=== PATIENT | female | born 1940 | race Caucasian/White ===

== ENCOUNTER 2021-06-21 19:45 | Emergency (ER) | payer MEDICARE, OTHER ==
[~2021-06-21 19:45] MED LIST: ARICEPT10 MG PO; ASPIRIN CHEWABL81 MG PO; BENTYL 10MG CAP10 MG PO; BUPROPION HCL100 M1 PO; COLACE 100MG C100 MG PO; ELAVIL 25 MG TA25 MG PO; GLUCOPHAGE500 MG PO; KLONOPIN TAB 00.5 MG PO; LEXAPRO TAB 1010 MG PO; LINZESS145 MCG PO; LUNESTA3 MG PO; LYRICA75 MG PO; MEMANTINE HCL E28 MG PO; NORCO 7.5-3251 EACH PO; TRICOR 145 MG145 MG PO; VITAMIN D3125 MCG PO; ZOCOR20 MG PO
== END 2021-06-21 22:35 | disposition home or self-care (01) ==
LOC: ER1 19:45
DX: S01.01XA Laceration without foreign body of scalp, initial encounter (principal); W01.0XXA Fall on same level from slipping, tripping and stumbling without subsequent striking against object, initial encounter; Y92.009 Unspecified place in unspecified non-institutional (private) residence as the place of occurrence of the external cause
CPT/HCPCS: 12001; 70450; 82962; 93005; 99284

== ENCOUNTER → 2021-10-09 | Outpatient (CLI) | payer MEDICARE, OTHER ==
[~2021-10-09] VITALS: Ht 162.6 cm; Wt 54.4 kg
== END ==
LOC: EROP 10:55
DX: U07.1 COVID-19 (principal); Z23 Encounter for immunization; E11.9 Type 2 diabetes mellitus without complications; I10 Essential (primary) hypertension
CPT/HCPCS: M0247; Q0247